=== PATIENT | male | born 1945 | race Caucasian/White ===

== ENCOUNTER 2019-10-15 22:26 | Emergency (ER) | payer MEDICARE ==
[~2019-10-15 22:26] MED LIST: AMIODARONE 50 MG/ML 3 ML VIAL IV ONE; DEXTROSE 5% IN WATER 50 ML BAG ONE; EPINEPHrine 10 ML SYRINGE (0.1 MG/ML) ONE; SODIUM BICARB 8.4% 50 ML SYR (1 MEQ/ML) ONE
--- NOTE | 2019-10-15 23:15 | ED ---
CPR HPI - General Chief Complaint: Cardiac Arrest/CPR Stated Complaint: Cardiac Arrest Source: EMS, RN notes reviewed, old records reviewed Mode of arrival: EMS Limitations: language barrier, altered mental status, physical limitation - History of Present Illness Initial Comments: This is a 74-year-old male presents in cardiac arrest patient presents by EMS history obtained by EMS. Patient is getting CPR currently patient is intubated on the airway as well as ER. Patient was a witnessed arrest for the family significant history of heart disease no recent illness late as of recent, no recent fevers no nausea vomiting diarrhea for history, patient history is obtained by EMS MD Complaint: found unresponsive, stopped breathing, collapsed during activity -: minute(s) Place: home Bystander CPR Performed: Yes AED Applied by Bystander/Catering Truck Driver: Yes Shock Advised: Yes Number of Shocks Delivered: 3 Initial Findings in the Field: unresponsive, no respirations, no pulse, VTACH/VFIB ROSC in the Field: No Associated Injuries: No Associated Symptoms: AICD discharge(s) Treatments Prior to Arrival: other airway device, defibrillated shocks #, epinephrine mgs # - Related Data Home Medications Medication Instructions Recorded Confirmed Aspirin EC [Ecotrin] 325 mg PO DAILY 05/15/15 05/15/15 Atorvastatin [Lipitor] 80 mg PO DAILY 05/15/15 05/15/15 Clopidogrel [Plavix] 75 mg PO DAILY 05/15/15 05/15/15 HYDROcodone/APAP 5-325MG [[place] 5] 1 each PO Q6HR PRN 05/15/15 05/15/15 Lisinopril [Zestril] 05/15/15 05/15/15 Metoprolol Succinate [Toprol XL] 50 mg PO DAILY 05/15/15 05/15/15 Naproxen [Naprosyn] 500 mg PO Q12HR 05/15/15 05/15/15 Tamsulosin HCl [Flomax] 0.4 mg PO BID 05/15/15 05/15/15 glyBURIDE [Diabeta] 10 mg PO BID 05/15/15 05/15/15 Allergies Allergy/AdvReac Type Severity Reaction Status Date / Time amoxicillin trihydrate Allergy Rash/Hives Verified 05/15/15 18:54 [From Augmentin] potassium clavulanate Allergy Rash/Hives Verified 05/15/15 18:54 [From Augmentin] Review of Systems ROS Statement: Those systems with pertinent positive or pertinent negative responses have been documented in the HPI. ROS Other: All systems not noted in ROS Statement are negative. Past Medical History Past Medical History: Coronary Artery Disease (CAD), Diabetes Mellitus History of Any Multi-Drug Resistant Organisms: None Reported Past Surgical History: Adenoidectomy, Appendectomy, Coronary Bypass/CABG Additional Past Surgical History / Comment(s): Bilateral carotid surgery, Right hiatal hernia Past Psychological History: No Psychological Hx Reported Smoking Status: Light tobacco smoker Past Alcohol Use History: Occasional Past Drug Use History: None Reported General Exam Limitations: altered mental status, physical limitation General appearance: obtunded, in distress, obese Head exam: Present: atraumatic, normocephalic, normal inspection Eye exam: Absent: normal appearance (Pupils are fixed and dilated), scleral icterus, conjunctival injection, periorbital swelling ENT exam: Present: normal exam, mucous membranes moist Neck exam: Present: normal inspection. Absent: tenderness, meningismus, lymphadenopathy Respiratory exam: Present: normal lung sounds bilaterally, decreased breath sounds. Absent: respiratory distress, wheezes, rales, rhonchi, stridor Cardiovascular Exam: Present: normal heart sounds, other (Rate his pain and underlying ventricular tachycardia, fibrillation at times). Absent: systolic murmur, diastolic murmur, rubs, gallop, clicks GI/Abdominal exam: Present: soft, distended, normal bowel sounds. Absent: tenderness, guarding, rebound, rigid Extremities exam: Present: normal inspection, full ROM, normal capillary refill. Absent: tenderness, pedal edema, joint swelling, calf tenderness Skin exam: Present: cyanosis, pallor, mottled. Absent: rash Course - Reevaluation(s) Reevaluation #1: 10/15/19 23:29 Medical records reviewed Reevaluation #2: 10/15/19 23:29 Spoke with medical sales associate Reevaluation #3: 10/15/19 23:29 Spoke with family, patient's informed of patient's passing, questions are answered Medical Decision Making - Medical Decision Making 74 male spine here in the ER secondary cardiac arrest ventricular fibrillation cardiac arrest with history of heart disease and bypass. Patient pronounced cardiac standstill on ultrasound at 2239 - Radiology Data Radiology results: report reviewed (Cardiac standstill on ultrasound at 2239 bedside), image reviewed Disposition Clinical Impression: Cardiac arrest Disposition: Condition: Critical Is patient prescribed a controlled substance at d/c from ED?: No Referrals: Sage Basilio MD [Primary Care Provider] - 1-2 days Preliminary Cause of : CPA
== END 2019-10-16 02:00 | disposition expired ==
LOC: EC 22:26
DX: I46.9 Cardiac arrest, cause unspecified (principal); I49.01 Ventricular fibrillation; R41.82 Altered mental status, unspecified; R14.0 Abdominal distension (gaseous); I25.10 Atherosclerotic heart disease of native coronary artery without angina pectoris; E11.9 Type 2 diabetes mellitus without complications; F17.200 Nicotine dependence, unspecified, uncomplicated; Z88.0 Allergy status to penicillin; Z79.1 Long term (current) use of non-steroidal anti-inflammatories (NSAID); Z79.02 Long term (current) use of antithrombotics/antiplatelets; Z79.82 Long term (current) use of aspirin; Z79.84 Long term (current) use of oral hypoglycemic drugs; Z79.899 Other long term (current) drug therapy; Z95.1 Presence of aortocoronary bypass graft; Z90.49 Acquired absence of other specified parts of digestive tract
CPT/HCPCS: 92950; 99285